=== PATIENT | male | born 1995 | race Caucasian/White ===

== ENCOUNTER 2018-06-24 21:30 | Emergency (ER) | payer SELFPAY ==
[~2018-06-24] VITALS: Ht 198.1 cm; Wt 102.3 kg
[2018-06-24 21:33] VITALS: BP 128/65
[2018-06-24] MEDS ORDERED: ketorolac trometh inj. 60 MG/2 ML VIAL IM ONE (22:45)
[2018-06-24] MEDS ORDERED: DICL50TA8 PO (23:49)
== END 2018-06-24 23:56 | disposition home or self-care (01) ==
LOC: ER 21:32
DX: M54.5 Low back pain (principal); Z79.899 Other long term (current) drug therapy; V86.96XA Unspecified occupant of dirt bike or motor/cross bike injured in nontraffic accident, initial encounter; Y93.55 Activity, bike riding; Y92.488 Other paved roadways as the place of occurrence of the external cause; Y99.8 Other external cause status
CPT/HCPCS: 72100; 96372; 99284; J1885